=== PATIENT | female | born 1990 | race American Indian/Alaskan Native ===

== ENCOUNTER 2020-09-21 01:05 | Emergency (ER) | payer SELFPAY ==
[2020-09-21 01:59] LABS: Basophils # (Auto) 0.1 K/mm3 (0.0-0.1); Basophils % (Auto) 0.4 % (0.0-1.8); Eosinophils # (Auto) 0.2 K/mm3 (0.0-0.4); Eosinophils % (Auto) 1.2 % (0.0-4.3); Hematocrit 35.7 % (30.3-42.9); Hemoglobin 12.2 gm/dl (10.1-14.3); Lymphocytes # (Auto) 2.1 K/mm3 (1.2-5.4); Lymphocytes % (Auto) 11.2 % (13.4-35.0); Mean Corpuscular HGB Conc 34 % (30-34); Mean Corpuscular Volume 87 fl (79-97); Monocytes # (Auto) 1.3 K/mm3 (0.0-0.8); Monocytes % (Auto) 6.9 % (0.0-7.3); Platelet Count 319 K/mm3 (140-440); Red Blood Count 4.11 M/mm3 (3.65-5.03); Red Cell Distribution Width 14.4 % (13.2-15.2)
[2020-09-21] MEDS ORDERED: ONDANSETRON 4 MG/2 ML INJ IV ONE ×2 (02:06→04:34)
[2020-09-21] MEDS ORDERED: SODIUM CHLORIDE 0.9% 1000 ML 1,000 ML IV ONE (02:06)
[2020-09-21 02:21] LABS: Alanine Aminotransferase 17 units/L (7-56); Blood Urea Nitrogen 14 mg/dL (7-17); Calcium 8.8 mg/dL (8.4-10.2); Hemolysis Index 8
--- NOTE | 2020-09-21 02:22 | Emergency Department Report ---
<YULYJESSIE PEREZ - Last Filed: 09/21/20 05:11> ED Abdominal Pain HPI - General Chief Complaint: Abdominal Pain Stated Complaint: LIGHT HEADED,BACK & ABD PAIN Source: patient Mode of arrival: Ambulatory Limitations: No Limitations - History of Present Illness Initial Comments: Patient is a 30-year-old -[place] female with no past medical history presents to the ED with complaint of acute onset persistent left flank pain for the last 1 week, worse in the last 2 days. Patient also complains of urinary frequency and urgency, dysuria. Patient also complains of nausea and vomiting in the last 8 hours intermittently, the last time which was 2 hours prior to arrival in the ED. Patient states that the pain is sharp and constant and that the pain gets worse with movement. Patient denies dizziness, syncope, vaginal bleeding, vaginal discharge, diarrhea, fever, chills, sore throat, chest pain or shortness of breath or change in vision, numbness and tingling or weakness of lower extremities bilaterally. MD Complaint: abdominal pain, flank pain (Right flank pain), other (Intractable nausea and vomiting) -: Sudden, week(s) (1) Location: periumbilical, RLQ Radiation: RLQ, R flank Migration to: no migration Severity scale (0 -10): 7 Quality: aching, sharp Consistency: constant Improves With: nothing Worsens With: movement Associated Symptoms: denies other symptoms, nausea, vomiting, anorexia. denies: diarrhea, fever, chills, constipation, dysuria, hematemesis, hematochezia - Related Data LMP (females 10-50): 3 weeks Previous Rx's Medication Instructions Recorded Last Taken Type Acetaminophen/Codeine [Tylenol 1 tab PO Q6H PRN #10 tab 09/21/20 Unknown Rx /Codeine # 3 tab] Ibuprofen [Motrin] 800 mg PO Q8HR PRN #30 tablet 09/21/20 Unknown Rx Ondansetron [Zofran Odt] 4 mg PO Q6HR PRN #15 tab.rapdis 09/21/20 Unknown Rx cephALEXin [Keflex] 500 mg PO Q8HR #30 capsule 09/21/20 Unknown Rx Allergies Allergy/AdvReac Type Severity Reaction Status Date / Time No Known Allergies Allergy Unverified 09/21/20 01:37 ED Review of Systems Constitutional: denies: chills, fever Eyes: denies: eye pain, eye discharge, vision change ENT: denies: ear pain, throat pain Respiratory: denies: cough, shortness of breath, wheezing Cardiovascular: denies: chest pain, palpitations Endocrine: no symptoms reported Gastrointestinal: abdominal pain (Right flank pain), nausea, vomiting. denies: diarrhea Genitourinary: urgency, dysuria, frequency. denies: hematuria, discharge Musculoskeletal: back pain. denies: joint swelling, arthralgia Skin: denies: rash, lesions Neurological: denies: headache, weakness, paresthesias Psychiatric: denies: anxiety, depression Hematological/Lymphatic: denies: easy bleeding, easy bruising ED Past Medical Hx - Past Medical History Previous Medical History?: No - Surgical History Past Surgical History?: No - Social History Smoking Status: Current Some Day Smoker Substance Use Type: None - Medications Home Medications: Home Medications Medication Instructions Recorded Confirmed Last Taken Type Acetaminophen/Codeine [Tylenol 1 tab PO Q6H PRN #10 tab 09/21/20 Unknown Rx /Codeine # 3 tab] Ibuprofen [Motrin] 800 mg PO Q8HR PRN #30 tablet 09/21/20 Unknown Rx Ondansetron [Zofran Odt] 4 mg PO Q6HR PRN #15 tab.rapdis 09/21/20 Unknown Rx cephALEXin [Keflex] 500 mg PO Q8HR #30 capsule 09/21/20 Unknown Rx ED Physical Exam - General Limitations: No Limitations General appearance: alert, in no apparent distress - Head Head exam: Present: atraumatic, normocephalic - Eye Eye exam: Present: normal appearance, PERRL, EOMI Pupils: Present: normal accommodation - ENT ENT exam: Present: normal exam, normal orophraynx, mucous membranes moist, TM's normal bilaterally - Neck Neck exam: Present: normal inspection, full ROM - Respiratory Respiratory exam: Present: normal lung sounds bilaterally. Absent: respiratory distress, wheezes, chest wall tenderness, accessory muscle use, prolonged expiratory - Cardiovascular Cardiovascular Exam: Present: regular rate, normal rhythm. Absent: normal heart sounds, systolic murmur, diastolic murmur, rubs, gallop - GI/Abdominal GI/Abdominal exam: Present: soft, tenderness (Palpable severe right flank and right CVA tenderness to palpation), guarding, normal bowel sounds. Absent: hyperactive bowel sounds - Extremities Exam Extremities exam: Present: normal inspection, full ROM, normal capillary refill - Back Exam Back exam: Present: normal inspection, full ROM. Absent: tenderness, CVA tenderness (R), CVA tenderness (L), muscle spasm - Neurological Exam Neurological exam: Present: alert, oriented X3, CN II-XII intact, normal gait, reflexes normal - Psychiatric Psychiatric exam: Present: normal affect, normal mood - Skin Skin exam: Present: warm, dry, intact, normal color. Absent: rash ED Medical Decision Making - Lab Data Result diagrams: 09/21/20 01:46 09/21/20 01:46 - Radiology Data Radiology results: report reviewed, image reviewed [facility] [address] [place] [address] Cat Scan Report Signed Patient: KHADRA CLARK MR#: [id number] : 1990 Acct:[id number] Age/Sex: 30 / F ADM Date: 09/21/20 Loc: ED Attending Dr: Ordering Physician: DAKOTA DAIGLE Date of Service: 09/21/20 Procedure(s): CT abdomen pelvis w con Accession Number(s): [id number] cc: DAKOTA DAIGLE CT abdomen pelvis w con INDICATION: Flank pain. COMPARISON: None TECHNIQUE: Abdominal and pelvic CT exam performed. All CT scans at this [facility] are performed using CT dose reduction for ALARA by means of automated exposure control. FINDINGS: CT ABDOMEN and PELVIS: Lung Bases: No significant abnormality. Liver: No significant abnormality. Biliary: No significant abnormality. Spleen: No significant abnormality. Pancreas: No significant abnormality. Adrenals: No significant abnormality. Kidneys: No significant abnormality. Lymphatics: No lymphadenopathy. Vasculature: No significant abnormality. Bowel: No significant abnormality. Pelvis: 2.5 cm peripherally enhancing left ovarian cyst. Small quantity of fluid is seen within the pelvis with slightly hyperattenuating Hounsfield units which is thought to represent small volume of blood products. Osseous Structures: No aggressive osseous lesion. Additional Findings: None IMPRESSION: 1. There is a small left corpus luteal cyst with suspected small volume of blood products seen in the rectouterine pouch and left adnexa most consistent with a ruptured corpus luteal cyst. Signer Name: Connor Pena MD Signed: 09/21/2020 4:00 AM Workstation Name: [id number] Transcribed By: TERESSA Dictated By: Connor Pena MD Electronically Authenticated By: Connor Pena MD Signed Date/Time: 09/21/20399 DD/ 5 TD/TT: - Medical Decision Making This is a 30-year-old -[place] female with no past medical history presents to the ED with complaint of acute onset persistent left flank pain for the last 1 week, worse in the last 2 days. Patient also complains of urinary frequency and urgency, dysuria. Patient also complains of nausea and vomiting in the last 8 hours intermittently, the last time which was 2 hours prior to arrival in the ED. Patient states that the pain is sharp and constant and that the pain gets worse with movement. In the ED, patient is alert and oriented x3 and is not in distress. Patient however appears to be in significant pain during the physical exam. Patient however is hemodynamically stable in triage. Patient was treated for pain and also given antiemetics, normal saline 1 L IV bolus x1. Lab test results were reviewed and showed acute leukocytosis of 19,200 significant urinary tract infection in urinalysis. The rest the lab test results are nonactionable. Abdomen pelvis CT scan with contrast showed a small left corpus luteal cyst with suspected small volume of blood products seen in the rectouterine pouch and left adnexa most consistent with a ruptured corpus luteal cyst. Patient was also treated with oral antibiotics Keflex in the ED. On reevaluation, patient's pain is well controlled medications, patient has not had any nausea or vomiting while in the ED. Patient was discharged home on pain medications and antibiotics and antiemetics and was advised to follow-up with [facility] physician or primary care physician in 7 to 10 days for reevaluation. Patient was also advised to return to the ED immediately if symptoms get worse. - Differential Diagnosis Kidney stones; pyelonephritis; UTI; colitis; ovarian cyst; ; PID ED Disposition Clinical Impression: Acute urinary tract infection, Ruptured cyst of left ovary, Left flank pain Disposition: - TO HOME OR SELFCARE Is pt being admited?: No Does the pt Need Aspirin: No Condition: Good Instructions: Nausea and Vomiting, Adult, [id number], Urinary Tract Infection, Adult, [id number], Ovarian Cyst, [id number], Flank Pain, Adult, [id number], Abdominal Pain (ED) Additional Instructions: Your lab test results showed acute leukocytosis of 19,000, and urinary tract infection in urinalysis. The abdomen pelvis CT scan with contrast showed ruptured left ovarian cyst. This may be the cause of your symptoms. Therefore take medication with food, drink plenty of fluids and follow-up with your primary care physician or [facility] physician in 3 to 5 days for reevaluation. Return to the ED immediately if symptoms get worse. Prescriptions: cephALEXin [Keflex] 500 mg PO Q8HR #30 capsule Ibuprofen [Motrin] 800 mg PO Q8HR PRN #30 tablet PRN Reason: Pain , Severe (7-10) Acetaminophen/Codeine [Tylenol /Codeine # 3 tab] 1 tab PO Q6H PRN #10 tab PRN Reason: Pain , Severe (7-10) Ondansetron [Zofran Odt] 4 mg PO Q6HR PRN #15 tab.rapdis PRN Reason: Nausea Referrals: MARILYNN LUCERO MD [Staff Physician] - 3-5 Days Forms: Work/School Release Form(ED) Time of Disposition: 05:13 Print Language: [place] <KARLY GRIMES - Last Filed: 09/21/20 21:40> ED Review of Systems ROS: Stated complaint: LIGHT HEADED,BACK & ABD PAIN Other details as noted in HPI ED Course Vital Signs 09/21/20 09/21/20 09/21/20 01:43 02:59 04:32 Temperature 98.8 F Pulse Rate 80 73 76 Respiratory 18 18 18 Rate Blood Pressure 98/70 115/51 117/67 [Left] O2 Sat by Pulse 99 100 97 Oximetry 09/21/20 05:46 Temperature Pulse Rate 75 Respiratory 16 Rate Blood Pressure 113/60 [Left] O2 Sat by Pulse 98 Oximetry ED Medical Decision Making - Lab Data Result diagrams: 09/21/20 01:46 09/21/20 01:46 Critical care attestation.: If time is entered above; I have spent that time in minutes in the direct care of this critically ill patient, excluding procedure time. ED Disposition Is pt being admited?: No Does the pt Need Aspirin: No
[2020-09-21 02:31] LABS: BUN/Creatinine Ratio 23
--- NOTE | 2020-09-21 04:04 | Cat Scan Report ---
CT abdomen pelvis w con INDICATION: Flank pain. COMPARISON: None TECHNIQUE: Abdominal and pelvic CT exam performed. All CT scans at this location are performed using CT dose reduction for ALARA by means of automated exposure control. FINDINGS: CT ABDOMEN and PELVIS: Lung Bases: No significant abnormality. Liver: No significant abnormality. Biliary: No significant abnormality. Spleen: No significant abnormality. Pancreas: No significant abnormality. Adrenals: No significant abnormality. Kidneys: No significant abnormality. Lymphatics: No lymphadenopathy. Vasculature: No significant abnormality. Bowel: No significant abnormality. Pelvis: 2.5 cm peripherally enhancing left ovarian cyst. Small quantity of fluid is seen within the p clemente with slightly hyperattenuating Hounsfield units which is thought to represent small volume of b lood products. Osseous Structures: No aggressive osseous lesion. Additional Findings: None IMPRESSION: 1. There is a small left corpus luteal cyst with suspected small volume of blood products seen in the rectouterine pouch and left adnexa most consistent with a ruptured corpus luteal cyst. Signer Name: Connor Pena MD Signed: 09/21/2020 4:00 AM Workstation Name: [id number]
[2020-09-21] MEDS ORDERED: MORPHINE 4 MG/1 ML INJ IV ONE (04:34)
[2020-09-21 05:08] LABS: Bacteria,Urine 1+ /HPF (Negative); Bilirubin,Urine NEG (Negative); Blood,Urine MOD (Negative); Color,Urine Yellow (Yellow); Mucus,Urine FEW /HPF; Protein,Urine <15 mg/dL mg/dL (Negative); Urobilinogen,Urine < 2.0 mg/dL (<2.0)
[2020-09-21] MEDS ORDERED: cephALEXin 500 MG CAP PO ONE (05:11)
[2020-09-21 05:47] VITALS: BP 113/60
== END 2020-09-21 05:46 | disposition home or self-care (01) ==
LOC: ED 01:05
DX: N39.0 Urinary tract infection, site not specified (principal); N83.292 Other ovarian cyst, left side; F17.200 Nicotine dependence, unspecified, uncomplicated; Z79.899 Other long term (current) drug therapy
CPT/HCPCS: 36415; 74177; 80053; 81001; 82140; 83690; 84703; 85025; 87040; 87086; 96361; 96374; 96375; 96376; 99284; J2270; J2405; J7030; Q9967

== ENCOUNTER 2021-06-12 22:00 | Emergency (ER) | payer MEDICAID | END 2021-06-13 00:34 | disposition left against medical advice (07) | LOC: ED 22:00 | DX: R10.9 Unspecified abdominal pain (principal); Z53.21 Procedure and treatment not carried out due to patient leaving prior to being seen by health care provider ==